=== PATIENT | male | born 2000 | race Asian ===

== ENCOUNTER 2023-03-12 14:03 | Emergency (ER) | payer OTHER ==
[~2023-03-12] VITALS: Ht 177.8 cm; Wt 86.0 kg
[2023-03-12 14:08] VITALS: BP 134/74; TEMP 98.6; O2SAT 97
[2023-03-12] MEDS ORDERED: AZIT250T12 MT (15:21)
[2023-03-12] MEDS ORDERED: IBUP-1525 MT (15:21)
[2023-03-12] MEDS ORDERED: TOPUD MT (15:21)
[2023-03-12] MEDS ORDERED: DEXT30SU17 MT (15:21)
[2023-03-12 15:47] VITALS: PULSE 91; RESP 16
== END 2023-03-12 15:48 | disposition home or self-care (01) ==
LOC: ER 14:03
DX: J20.9 Acute bronchitis, unspecified (principal); J02.9 Acute pharyngitis, unspecified
CPT/HCPCS: 99282; 99283